=== PATIENT | female | born 1970 | race Caucasian/White ===

== ENCOUNTER 2022-04-30 15:32 | Emergency (ER) | payer SELFPAY ==
[~2022-04-30] VITALS: Ht 162.6 cm; Wt 70.3 kg
[2022-04-30 16:01] VITALS: BP 143/70
[2022-04-30] MEDS ORDERED: ACETAMINOPHEN 325 MG TAB PO ONE (18:30)
[2022-04-30] MEDS ORDERED: HYDR28CR38 TP (18:43)
[2022-04-30] MEDS ORDERED: ACET-9882 PO (18:43)
--- NOTE | 2022-04-30 19:01 | NUR ---
Patient discharged with v/s stable. Written and verbal after care instructions given and explained. Patient alert, oriented and verbalized understanding of instructions. Ambulatory with steady gait. All questions addressed prior to discharge. ID band removed. Patient advised to follow up with PMD. Rx of CORTISONE CREAM, TYLENOL given. Patient educated on indication of medication including possible reaction and side effects. Opportunity to ask questions provided and answered.
== END 2022-04-30 19:01 | disposition home or self-care (01) ==
LOC: MED 15:32
DX: R21 Rash and other nonspecific skin eruption (principal); F17.210 Nicotine dependence, cigarettes, uncomplicated
CPT/HCPCS: 99283